=== PATIENT | male | born 1995 | race African-American/Black ===

== ENCOUNTER 2016-12-01 20:10 | Emergency (ER) | payer MEDICAID | END 2016-12-02 00:52 | disposition home or self-care (01) | LOC: D.ER 20:10 | DX: R07.89 Other chest pain (principal); J45.909 Unspecified asthma, uncomplicated ==

== ENCOUNTER 2018-05-15 22:09 | Emergency (ER) | payer MEDICAID ==
[~2018-05-15] VITALS: Ht 170.2 cm; Wt 97.3 kg
[2018-05-15 22:36] VITALS: Ht 170.2 cm; Wt 97.3 kg
[2018-05-15 23:47] LABS: HEMATOCRIT 46.5 % (42.0-54.0); HEMOGLOBIN 16.1 g/dL (13.5-17.5); LYMPHOCYTES 16.3 % (15-50); MCH 33.2 pg (26.0-34.0); MCHC 34.6 g/dL (31.0-37.0); MCV 95.9 fL (80.0-100.0); MEAN PLATELET VOLUME 9.9 fL (7.4-10.4); NEUTROPHILS 74.5 % (40-80); PLATELET COUNT 286 10x3/uL (130-400); RBC 4.85 10x6/uL (4.20-6.10); RDW 12.5 % (11.5-14.5)
[2018-05-16 00:05] LABS: ALBUMIN 4.1 g/dL (3.4-5.0); ANION GAP 12.8 mmol/L (8-16); BILIRUBIN - TOTAL 0.89 mg/dL (0.2-1.3); CARBON DIOXIDE 25.9 mmol/L (21.0-32.0); CREATININE - SERUM 1.3 mg/dL (0.6-1.3); POTASSIUM - SERUM 3.7 mmol/L (3.5-5.1); PROTEIN - SERUM 7.8 g/dL (6.4-8.2)
[2018-05-16 02:05] LABS: UDS - AMPHET NEGATIVE QUAL (NEGATIVE); UDS - BARB NEGATIVE QUAL (NEGATIVE); UDS - BENZO NEGATIVE QUAL (NEGATIVE); UDS - COCAINE NEGATIVE QUAL (NEGATIVE); UDS - OPIATE POSITIVE QUAL (NEGATIVE); UDS - PCP NEGATIVE QUAL (NEGATIVE); UDS - THC NEGATIVE QUAL (NEGATIVE)
[2018-05-16 02:07] LABS: APPEARANCE CLEAR (CLEAR); BACTERIA MODERATE /hpf (NONE SEEN); BILIRUBIN NEGATIVE (NEGATIVE); COLOR YELLOW (YELLOW); EPITHELIAL CELLS 0-5 /hpf (0-5); GLUCOSE NEGATIVE (NEGATIVE); KETONE NEGATIVE (NEGATIVE); MUCUS <1+ /lpf (NONE SEEN); NITRITE NEGATIVE (NEGATIVE); PROTEIN NEGATIVE (NEGATIVE); RED CELLS - URINE 0-5 /hpf (0-5); SPECIFIC GRAVITY 1.025 (1.005-1.020); UROBILINOGEN NORMAL (NORMAL)
[2018-05-16] MEDS ORDERED: ZOFRAN4 MG (04:47)
[2018-05-16] MEDS ORDERED: BACTRIM DS TABL1 TAB PO (04:48)
[2018-05-16] MEDS ORDERED: ZOFRAN4 MG PO (04:49)
[2018-05-16 05:21] VITALS: BP 128/78
== END 2018-05-16 05:18 | disposition home or self-care (01) ==
LOC: D.ER 22:09
PROVIDERS: Family Medicine
DX: N39.0 Urinary tract infection, site not specified (principal); K52.9 Noninfective gastroenteritis and colitis, unspecified

== ENCOUNTER 2018-08-30 18:32 | Emergency (ER) | payer MEDICAID ==
[~2018-08-30] VITALS: Ht 170.2 cm; Wt 77.3 kg
[~2018-08-30 18:32] MED LIST: BACTRIM DS TABL1 TAB PO; ZOFRAN4 MG; ZOFRAN4 MG PO
[2018-08-30 18:33] VITALS: Ht 170.2 cm; Wt 77.3 kg
[2018-08-30 18:54] LABS: BASOPHILS 0.4 % (0-2); EOSINOPHILS 2.1 % (0-7); HEMOGLOBIN 14.7 g/dL (13.5-17.5); IMMATURE GRANULOCYTES 0.4 % (0-5); LYMPHOCYTES 32.7 % (15-50); MCH 33.3 pg (26.0-34.0); MCHC 34.2 g/dL (31.0-37.0); MCV 97.5 fL (80.0-100.0); MEAN PLATELET VOLUME 10.3 fL (7.4-10.4); MONOCYTES 9.6 % (2-11); NEUTROPHILS 54.8 % (40-80); PLATELET COUNT 292 10x3/uL (130-400); RBC 4.41 10x6/uL (4.20-6.10); RDW 11.8 % (11.5-14.5); WBC 8.1 10x3/uL (4.8-10.8)
[2018-08-30 19:20] LABS: ALBUMIN 3.9 g/dL (3.4-5.0); ANION GAP 13.7 mmol/L (8-16); BILIRUBIN - TOTAL 0.63 mg/dL (0.2-1.3); CALCIUM 8.9 mg/dL (8.5-10.1); CREATININE - SERUM 1.5 mg/dL (0.6-1.3); POTASSIUM - SERUM 3.7 mmol/L (3.5-5.1); PROTEIN - SERUM 7.6 g/dL (6.4-8.2)
[2018-08-30 19:44] LABS: APPEARANCE CLEAR (CLEAR); BILIRUBIN NEGATIVE (NEGATIVE); COLOR YELLOW (YELLOW); GLUCOSE NEGATIVE (NEGATIVE); KETONE NEGATIVE (NEGATIVE); NITRITE NEGATIVE (NEGATIVE); PROTEIN NEGATIVE (NEGATIVE); UROBILINOGEN NORMAL (NORMAL)
[2018-08-30 20:17] LABS: UDS - AMPHET NEGATIVE QUAL (NEGATIVE); UDS - BARB NEGATIVE QUAL (NEGATIVE); UDS - BENZO NEGATIVE QUAL (NEGATIVE); UDS - COCAINE NEGATIVE QUAL (NEGATIVE); UDS - OPIATE POSITIVE QUAL (NEGATIVE); UDS - PCP NEGATIVE QUAL (NEGATIVE); UDS - THC NEGATIVE QUAL (NEGATIVE)
[2018-08-30 20:48] VITALS: BP 153/90
== END 2018-08-30 20:49 | disposition home or self-care (01) ==
LOC: D.ER 18:32
PROVIDERS: Family Medicine
DX: G40.909 Epilepsy, unspecified, not intractable, without status epilepticus (principal)

== ENCOUNTER 2018-08-31 20:49 | Emergency (ER) | payer MEDICAID ==
[~2018-08-31] VITALS: Ht 170.2 cm; Wt 97.7 kg
[2018-08-31 20:57] VITALS: Ht 170.2 cm; Wt 97.7 kg
[2018-08-31 21:16] VITALS: BP 134/88
== END 2018-08-31 21:16 | disposition home or self-care (01) ==
LOC: D.ER 20:49
DX: M79.18 Myalgia, other site (principal); G40.909 Epilepsy, unspecified, not intractable, without status epilepticus

== ENCOUNTER 2019-04-05 00:42 | Emergency (ER) | payer MEDICAID ==
[2018-08-31 20:57] VITALS: Ht 170.2 cm; Wt 95.3 kg
[~2019-04-05] VITALS: Ht 170.2 cm; Wt 95.3 kg
[2019-04-05 01:23] VITALS: BP 138/70
== END 2019-04-05 01:22 | disposition home or self-care (01) ==
LOC: D.ER 00:42
DX: S61.411A Laceration without foreign body of right hand, initial encounter (principal); W25.XXXA Contact with sharp glass, initial encounter